=== PATIENT | male | born 1995 | race American Indian/Alaskan Native ===

== ENCOUNTER 2018-02-07 22:16 | Emergency (ER) | payer MEDICAID ==
[2018-02-07] MEDS ORDERED: HALOPERIDOL LACT 5 MG/ML INJ IM ONE ×2 (22:30→22:50)
[2018-02-07] MEDS ORDERED: LORazepam 2 MG/ML INJ IM ONE ×2 (22:35→22:50)
[2018-02-07] MEDS ORDERED: HALOPERIDOL LACT 5 MG/ML INJ ONE ×2 (22:35→22:52)
[2018-02-07] MEDS ORDERED: LORazepam 2 MG/ML INJ ONE ×2 (22:35→22:53)
[2018-02-07 23:59] LABS: PLATELET COUNT 288 10^3/uL (150-400)
--- NOTE | 2018-02-08 02:18 | EDPHY ---
H & P Stated Complaint: drug use tonight, uncooperative and combative - Personal History Current Tetanus/Diphtheria Vaccine: Unsure - Medical/Surgical History Hx Asthma: No Hx Chronic Respiratory Disease: No Hx Diabetes: No Hx Cardiac Disease: No Hx Renal Disease: No Hx Cirrhosis: No Hx Alcoholism: No Hx HIV/AIDS: No Hx Splenectomy or Spleen Trauma: No Other PMH: meth use - Social History Smoking Status: Unknown if ever smoked Time Seen by Provider: 02/07/18 22:29 HPI/ROS: Chief Complaint: Agitated, combative HPI: 22-year-old male brought in by EMS after he was found trashing his own apartment. Per EMS the patient had been taking drugs, however the patient is not answering any questions at this time. Patient be camping increasing agitated. He is trying to tear physical closed. Has required restraints by EMS and police. He is otherwise not answering any other questions. ROS: Unobtainable secondary to patient's lack of cooperation PMH: Unobtainable secondary to the patient's lack of cooperation Social History: Unknown smoking, unknown alcohol, unknown other drug use Family History: non-contributory Physical Exam: Gen: Awake, Alert, No Distress, agitated, combative HEENT: Nose: no rhinorrhea Eyes: PERRLA, EOMI Mouth: Moist mucosa Neck: Supple, no JVD Chest: nontender, lungs clear to auscultation Heart: S1, S2 normal, no murmur Abd: Soft, non-tender, no guarding Back: no CVA tenderness, no midline tenderness Ext: no edema, non-tender Skin: no rash Neuro: CN II-XII intact, Sensation grossly intact, Strength 5/5 in bilateral upper and lower extremities (Victorino Joseph) Constitutional: Initial Vital Signs Temperature (C) 37.4 C 02/07/18 22:21 Heart Rate 100 02/07/18 22:21 Respiratory Rate 18 02/07/18 22:21 Blood Pressure 102/68 02/07/18 22:21 O2 Sat (%) 93 02/07/18 22:21 O2 Delivery Mode Room Air Allergies/Adverse Reactions: No Known Allergies Allergy (Verified 02/07/18 22:24) Home Medications: Medication Instructions Recorded NK [No Known Home Meds] 07/25/13 Medical Decision Making ED Course/Re-evaluation: Patient increasingly agitated. Initially given 5 mg of Haldol 2 mg of Ativan intramuscularly. Patient became increasingly aggressive required takedown by staff. Initial 5 into or ordered by me. (Victorino Joseph) Other Provider: Patient was signed out to me at [address] Joseph pending sober evaluation and psychiatric evaluation. The patient remained stable over the course of my shift. We were finally able to obtain a urine tox screen which is positive for many substances, including cocaine. This appears to be the likely cause of his AMS. The nurse contacted the patient's mother who is en route. Mental health met with her and provided her with resources. Patient is polite, remorseful - the feel he is safe for discharge to care of mother. I have lifted the hold. (Yan Villa) - Data Points Laboratory Results: Laboratory Results 02/07/18 23:50 02/07/18 23:50 02/08/18 11:04 Urine Opiates Screen NEGATIVE (NEGATIVE) Urine Barbiturates NEGATIVE (NEGATIVE) Ur Phencyclidine Scrn NEGATIVE (NEGATIVE) Ur Amphetamine Screen NEGATIVE (NEGATIVE) U Benzodiazepines Scrn NON-NEGATIVE H (NEGATIVE) Urine Cocaine Screen NON-NEGATIVE H (NEGATIVE) U Marijuana (THC) Screen NON-NEGATIVE H (NEGATIVE) Medications Given: Discontinued Medications Haloperidol Lactate (Haldol Injection) 5 mg IM EDNOW ONE Stop: 02/07/18 22:31 Last Admin: 02/07/18 22:35 Dose: 5 mg Haloperidol Lactate (Haldol Injection) 5 mg IM EDNOW ONE Stop: 02/07/18 22:51 Last Admin: 02/07/18 22:55 Dose: 5 mg Lorazepam (Ativan Injection) 2 mg IM EDNOW ONE Stop: 02/07/18 22:36 Last Admin: 02/07/18 22:35 Dose: 2 mg Lorazepam (Ativan Injection) 2 mg IM EDNOW ONE Stop: 02/07/18 22:51 Last Admin: 02/07/18 22:55 Dose: 2 mg Departure - Departure Referrals: Patient,NotPresent [Unknown] - As per Instructions
--- NOTE | 2018-02-08 10:15 | ASMTLCPROG ---
Notes Note: Notes: [facility]LC dayshift per request of evening shift made contact with community [employer], Molly Todd @ [phone] and [facility] rep. to inform. of dispo placement of pt. Date Signed: 02/08/2018 10:15 AM Electronically Signed By:Rhona Scott
[2018-02-08 14:52] VITALS: BP 100/60
--- NOTE | 2018-02-08 15:21 | ASMTLCPROG ---
Notes Note: Notes: Conuslted with Dr. Villa and spoke with mother. PT has no hx of mental illness and reported using Cocaine and THC. PT contracted for safety and denied hi and si, pt is polite coherenent, orientedx3. PT's mother reported the pt is very gift. TLC educated PT and mother about drug induced psychosis, risks of substance abuse and potental bad reactions to THC to be monitored. PT was given outpt resources for the crisis center, and chemical dependency IOPs. ED physician Dr. Villa lifted m1 hold. Date Signed: 02/08/2018 03:20 PM Electronically Signed By:Yan Dozier
== END 2018-02-08 14:54 | disposition home or self-care (01) ==
LOC: EDUNIT#
DX: R45.6 Violent behavior (principal); R45.1 Restlessness and agitation
CPT/HCPCS: 80305; G0480; J1630; J2060